=== PATIENT | female | born 1955 | race Caucasian/White ===

== ENCOUNTER 2017-10-24 20:18 | Emergency (ER) | payer OTHER ==
[2017-10-24 20:38] VITALS: BP 148/103; PULSE 68; RESP 18; TEMP 97.9; O2SAT 96
[2017-10-24] MEDS ORDERED: IBUPROFEN 600 MG TAB PO ONE (20:38)
[2017-10-24] MEDS ORDERED: ACETAMINOPHEN 500 MG TAB PO ONE (20:38)
--- NOTE | 2017-10-24 20:40 | EDPHY ---
H & P Stated Complaint: L knee pain Time Seen by Provider: 10/24/17 20:33 HPI/ROS: CHIEF COMPLAINT: Left knee pain HISTORY OF PRESENT ILLNESS: The patient is a 62-year-old female who comes to the emergency department complaining of left knee pain. She states that she was standing on a 1 ft high stool when she lost her balance step to the side. Her knee bowed laterally and she has pain to the lateral and anterior aspect of her knee radiating down to her mid green. No ankle or hip pain. She has not been able to bear weight because of pain. It does not feel unstable. REVIEW OF SYSTEMS: Constitutional: denies: chills, fever, recent illness, recent injury EENTM: denies: blurred vision, double vision, nose congestion Respiratory: denies: cough, shortness of breath Cardiac: denies: chest pain, irregular heart rate, lightheadedness, palpitations Gastrointestinal/Abdominal: denies: abdominal pain, diarrhea, nausea, vomiting, blood streaked stools Genitourinary: denies: dysuria, frequency, hematuria, pain Musculoskeletal: See HPI Skin: denies: lesions, rash, jaundice, bruising Neurological: denies: headache, numbness, paresthesia, tingling, dizziness, weakness Hematologic/Lymphatic: denies: blood clots, easy bleeding, easy bruising Immunologic/allergic: denies: HIV/AIDS, transplant EXAM: GENERAL: Well-appearing, well-nourished and in no acute distress. HEAD: Atraumatic, normocephalic. EYES: Pupils equal round and reactive to light, extraocular movements intact, sclera anicteric, conjunctiva are normal. ENT: TMs normal, nares patent, oropharynx clear without exudates. Moist mucous membranes. NECK: Normal range of motion, supple without lymphadenopathy or JVD. LUNGS: Breath sounds clear to auscultation bilaterally and equal. No wheezes rales or rhonchi. HEART: Regular rate and rhythm without murmurs, rubs or gallops. ABDOMEN: Soft, nontender, normoactive bowel sounds. No guarding, no rebound. No masses appreciated. BACK: No CVA tenderness, no spinal tenderness, step-offs or deformities EXTREMITIES: Left knee pain, no obvious swelling. Pain laterally. Laxity with lateral collateral ligament stressing. NEUROLOGICAL: Cranial nerves II through XII grossly intact. Normal speech, normal gait. 5/5 strength, normal movement in all extremities, normal sensation PSYCH: Normal mood, normal affect. SKIN: Warm, dry, normal turgor, no visible rashes or lesions. Source: Patient - Personal History Current Tetanus/Diphtheria Vaccine: Unsure Current Tetanus Diphtheria and Acellular Pertussis (TDAP): Unsure - Medical/Surgical History Hx Asthma: No Hx Chronic Respiratory Disease: No Hx Diabetes: No Hx Cardiac Disease: No Hx Renal Disease: No Hx Cirrhosis: No Hx Alcoholism: No Hx HIV/AIDS: No Hx Splenectomy or Spleen Trauma: No Other PMH: tonsillectomy, ectopic preg, , clavicular resection, choleycystectomy, L meniscus repair-Fanny, oophrectomy-fibroids. - Family History Significant Family History: No pertinent family hx - Social History Smoking Status: Never smoked Alcohol Use: Sober Drug Use: None Constitutional: Initial Vital Signs Temperature (C) 36.6 C 10/24/17 20:35 Heart Rate 68 10/24/17 20:35 Respiratory Rate 18 10/24/17 20:35 Blood Pressure 148/103 H 10/24/17 20:35 O2 Sat (%) 96 10/24/17 20:35 O2 Delivery Mode Room Air Allergies/Adverse Reactions: aspirin [Aspirin] Allergy (Severe, Verified 10/24/17 20:39) Swelling/neck,face,throat acetaminophen [From Vicodin] Allergy (Intermediate, Verified 10/24/17 21:08) Itching hydrocodone [From Vicodin] Allergy (Intermediate, Verified 10/24/17 21:08) Itching Home Medications: Medication Instructions Recorded NO HOME MEDICATIONS 08/16/11 Medical Decision Making - Diagnostics Imaging Results: Imaging Impressions Knee X-Ray 10/24/17 20:38 Impression: Normal. X-ray: Knee x-ray was obtained. I viewed the images myself on the PACS system. My interpretation of the images is: Negative for fracture. The radiologist interpretation is pending. Imaging: I viewed and interpreted images myself Procedures: Procedure: Splint placement. A straight leg knee brace splint was applied. After application of the splint I returned and re-examined the patient. The splint was adequately immobilizing the joint and distal to the splint the patient's circulation and sensation was intact. ED Course/Re-evaluation: The patient's x-ray is reassuring. She does appear to have some collateral ligament laxity on exam. I will refer her back to her orthopedist Dr. Escobedo for further evaluation and MRI. We will place her in a straight leg brace and crutches [facility] and give her pain medicine. She understands and agrees with this plan. She declines further workup or testing. She manages physical therapy clinics. Differential Diagnosis: Partial list of the Differential diagnosis considered include but were not limited to; ligamentous injury, meniscus injury and although unlikely based on the history and physical exam, I also considered tibial plateau fracture, patella fracture, patella tendon rupture. I discussed these differential diagnoses and the plan with the patient as well as the usual and expected course. The patient understands that the diagnosis is provisional and that in medicine we are not always correct and that further workup is often warranted. Usual and customary warnings were given. All of the patient's questions were answered. The patient was instructed to return to the emergency department should the symptoms at all worsen or return, otherwise to followup with the physician as we discussed. - Data Points Medications Given: Discontinued Medications Acetaminophen (Tylenol) 1,000 mg PO EDNOW ONE Stop: 10/24/17 20:39 Last Admin: 10/24/17 20:45 Dose: 1,000 mg Ibuprofen (Motrin) 600 mg PO EDNOW ONE Stop: 10/24/17 20:39 Last Admin: 10/24/17 20:46 Dose: 600 mg Oxycodone/Acetaminophen (Percocet 5/325mg Prepack#4) 1 btl TAKEHOME EDNOW ONE Stop: 10/24/17 21:08 Last Admin: 10/24/17 21:17 Dose: 1 btl Departure - Departure Disposition: Home, Routine, Self-Care Clinical Impression: Injury of knee, left Qualifiers: Encounter type: initial encounter Qualified Code(s): S89.92XA - Unspecified injury of left lower leg, initial encounter Condition: Fair Instructions: Oxycodone/Acetaminophen (By mouth), Crutch Instructions (ED), Knee Immobilizer (ED) Referrals: Lesvia Jeffries [Primary Care Provider] - As per Instructions Naveen Escobedo MD [Medical Doctor] - As per Instructions
[2017-10-24] MEDS ORDERED: OXYCODONE/APAP 5/325MG PREPACK#4 BTL TAKEHOME ONE (21:07)
== END 2017-10-24 21:35 | disposition home or self-care (01) ==
LOC: CED 20:18
DX: S89.92XA Unspecified injury of left lower leg, initial encounter (principal); X58.XXXA Exposure to other specified factors, initial encounter
CPT/HCPCS: 73564-PO; L1830